=== PATIENT | female | born 1945 | race Hispanic/Latino ===

== ENCOUNTER 2021-04-13 21:42 | Emergency (ER) | payer OTHER ==
[~2021-04-13] VITALS: Ht 165.1 cm; Wt 70.3 kg
[~2021-04-13 21:42] MED LIST: DITROPAN XL5 MG PO; LOSARTAN POTASS25 MG PO; TYLENOL WITH C1 EACH PO; ZYRTEC10 MG PO
[2021-04-13] MEDS ORDERED: HYDROCODONE/APAP 5MG-325MG TAB PO ONE (22:15)
[2021-04-13] MEDS ORDERED: KETOROLAC TROMETHAMINE 30 MG/ML VIAL IM ONE (22:15)
[2021-04-13] MEDS ORDERED: ONDANSETRON HCL 4 MG ORAL DISINTEGRATING TAB PO ONE (22:15)
[2021-04-13] MEDS ORDERED: MUPIROCIN 2% OINT 22 GM TUBE TOP ONE (22:15)
[2021-04-13] MEDS ORDERED: MUPIROCIN22 GM TOP (22:26)
[2021-04-13] MEDS ORDERED: ACETAMINOPHEN-1 EAC4 PO (22:26)
[2021-04-13] MEDS ORDERED: IBUPROFEN IB200 MG PO (22:26)
[2021-04-13] MEDS ORDERED: KETOROLAC TROMETHAMINE 30 MG/ML VIAL ONE (22:36)
[2021-04-13] MEDS ORDERED: ONDANSETRON HCL 4 MG ORAL DISINTEGRATING TAB ONE (22:36)
[2021-04-13] MEDS ORDERED: HYDROCODONE/APAP 5MG-325MG TAB ONE (22:37)
[2021-04-13] MEDS ORDERED: BACITRACIN ZINC 0.9GM TP ONE (22:37)
[2021-04-13 22:47] VITALS: BP 188/90
== END 2021-04-13 22:47 | disposition home or self-care (01) ==
LOC: FSED 22:00
DX: T21.21XA Burn of second degree of chest wall, initial encounter (principal); T20.19XA Burn of first degree of multiple sites of head, face, and neck, initial encounter; T21.11XA Burn of first degree of chest wall, initial encounter; T31.0 Burns involving less than 10% of body surface
CPT/HCPCS: 99283; J1885; Q0162

== ENCOUNTER 2021-11-05 07:45 | Observation (INO) | payer MEDICARE ==
[2021-11-02 11:08] LABS: BASOPHILS % 0.5 % (0.0-1.0); EOSINOPHILS # (AUTO) 0.1 (0.0-0.4); HEMATOCRIT 37.6 % (34.2-44.1); HEMOGLOBIN 12.2 g/dL (12.0-16.0); LYMPHOCYTES # (AUTO) 1.4 (1.0-3.2); LYMPHOCYTES % 17.3 % (18.0-39.1); MEAN CORPUSCULAR HEMOGLOBIN 31.4 pg (28-32); MEAN CORPUSCULAR HGB CONC 32.4 g/dL (31-35); MEAN CORPUSCULAR VOLUME 96.7 fL (81-99); MONOCYTES # (AUTO) 0.4 (0.2-0.8); MONOCYTES % 4.2 % (4.4-11.3); NEUTROPHILS # (AUTO) 6.3 (2.1-6.9); NEUTROPHILS % 76.8 % (38.7-80.0); PLATELET COUNT 172 x10e3/uL (140-360); RED BLOOD COUNT 3.89 x10e6/uL (3.6-5.1); RED CELL DISTRIBUTION WIDTH 14.2 % (11.7-14.4)
[~2021-11-05] VITALS: Ht 162.6 cm; Wt 71.2 kg
[~2021-11-05 07:45] MED LIST changes: +ACETAMINOPHEN-1 EAC4 PO; +IBUPROFEN IB200 MG PO; +MUPIROCIN22 GM TOP
[2021-11-05] MEDS ORDERED: ROPIVACAINE 246.25 MG, EPINEPHRINE HCL 1:1000 1ML 0.5 MG, CLONIDINE HCL 0.08 MG, KETORO... INJ ONE ×5 (08:00)
[2021-11-05] MEDS ORDERED: CELECOXIB 200 MG CAP ONE (08:07)
[2021-11-05] MEDS ORDERED: DEXAMETHASONE SOD PHOS 10 MG/1 ML VIAL ONE (08:07)
[2021-11-05] MEDS ORDERED: GABAPENTIN 300 MG CAP ONE (08:08)
[2021-11-05] MEDS ORDERED: Vancomycin IV 1,000 MG ONE (08:52)
[2021-11-05] MEDS ORDERED: TRANEXAMIC ACID 1,000 MG/10 ML ML ONE (08:52)
[2021-11-05] MEDS ORDERED: SODIUM CHLORIDE 0.9% 500ML 500 ML ONE (08:52)
[2021-11-05] MEDS ORDERED: DOCUSATE SODIUM 100 MG CAP PO PRN (10:45)
[2021-11-05] MEDS ORDERED: DIPHENHYDRAMINE HCL INJ 50 MG/ML VIAL IV PRN (10:45)
[2021-11-05] MEDS ORDERED: ZOLPIDEM TARTRATE 5 MG TAB PO PRN (10:45)
[2021-11-05] MEDS ORDERED: ACETAMINOPHEN 650 MG SUPP PR PRN (10:45)
[2021-11-05] MEDS ORDERED: HYDROCODONE/APAP 5MG-325MG TAB PO PRN (10:45)
[2021-11-05] MEDS ORDERED: KETOROLAC TROMETHAMINE 30 MG/ML VIAL IV PRN (10:45)
[2021-11-05] MEDS ORDERED: HYDROCODONE/APAP 7.5MG-325MG 1 EA TAB PO PRN (10:45)
[2021-11-05] MEDS ORDERED: ONDANSETRON HCL INJ 2MG/ML 2ML 2 MG/ML VIAL IV PRN (10:45)
[2021-11-05] MEDS ORDERED: FENTANYL CITRATE/PF 100MCG/2 ML INJ ONE ×2 (11:11→13:10)
[2021-11-05] MEDS ORDERED: MEPERIDINE HCL INJ 25 MG/ML VIAL ONE (11:43)
[2021-11-05 12:30] VITALS: BP 135/63
[2021-11-05 12:32] VITALS: BP 135/63
[2021-11-05 12:36] VITALS: BP 135/63
[2021-11-05] MEDS ORDERED: ACETAMINOPHEN 1000 MG/100 ML IV ONE (12:41)
[2021-11-05] MEDS ORDERED: POVIDONE IODINE 0.05% 0.05 % ML PO ONE (12:41)
[2021-11-05] MEDS ORDERED: LIDOCAINE HCL 2% LOCAL INJ 5 ML SDV VIAL INJ ONE (12:41)
[2021-11-05] MEDS ORDERED: PROPOFOL IV EMULSION 10 MG/ML 20 ML VIAL ONE (12:41)
[2021-11-05] MEDS ORDERED: ONDANSETRON HCL INJ 2MG/ML 2ML 2 MG/ML VIAL ONE (12:41)
[2021-11-05] MEDS ORDERED: SEVOFLURANE INHAL SOLN 250 ML PEN BTL ONE (12:41)
[2021-11-05] MEDS ORDERED: SODIUM CHLORIDE 0.9% 1000ML 1,000 ML IV SCH (13:00)
[2021-11-05] MEDS ORDERED: ROPIVACAINE 0.5% 5 MG/ML 30 ML SDV ONE (13:04)
[2021-11-05] MEDS ORDERED: MIDAZOLAM HCL 2 MG/2 ML VIAL ONE (13:10)
[2021-11-05] MEDS ORDERED: SODIUM CHLORIDE 0.9% 250ML 250 ML ONE (13:46)
[2021-11-05 15:30] LABS: BASOPHILS % 0.2 % (0.0-1.0); HEMATOCRIT 36.2 % (34.2-44.1); HEMOGLOBIN 11.7 g/dL (12.0-16.0); LYMPHOCYTES # (AUTO) 0.5 (1.0-3.2); LYMPHOCYTES % 4.8 % (18.0-39.1); MEAN CORPUSCULAR HEMOGLOBIN 31.2 pg (28-32); MEAN CORPUSCULAR HGB CONC 32.3 g/dL (31-35); MEAN CORPUSCULAR VOLUME 96.5 fL (81-99); MONOCYTES # (AUTO) 0.1 (0.2-0.8); MONOCYTES % 0.5 % (4.4-11.3); NEUTROPHILS # (AUTO) 9.6 (2.1-6.9); NEUTROPHILS % 94.1 % (38.7-80.0); PLATELET COUNT 151 x10e3/uL (140-360); RED BLOOD COUNT 3.75 x10e6/uL (3.6-5.1); RED CELL DISTRIBUTION WIDTH 13.7 % (11.7-14.4)
[2021-11-05 16:15] VITALS: BP 151/81
[2021-11-05] MEDS ORDERED: ASPIRIN 325 MG TAB PO SCH (17:00)
[2021-11-05] MEDS ORDERED: CELECOXIB 200 MG CAP PO SCH (17:00)
[2021-11-05] MEDS ORDERED: Cefazolin 1 GM in SODIUM CHLORIDE 0.9% 50ML 50 ML IV SCH (17:30)
[2021-11-05] MEDS ORDERED: ONDANSETRON HCL 4 MG ORAL DISINTEGRATING TAB PO PRN (18:15)
[2021-11-06] MEDS ORDERED: ACETAMINOPHEN 1000 MG/100 ML IV PRN (10:45)
== END 2021-11-05 18:22 | disposition home or self-care (01) ==
LOC: OR 07:45 → PACU V 10:40 → MED/SURG 12:05
PROVIDERS: ADMIT Specialist; ATTEND Specialist
DX: M17.11 Unilateral primary osteoarthritis, right knee (principal); I10 Essential (primary) hypertension; Z20.822 Contact with and (suspected) exposure to COVID-19
CPT/HCPCS: 27447; 36415 ×2; 71046; 73560; 85025 ×2; 86850; 86900; 86920; 93005; 94799; 97110; 97116; 97161; 97530; C1713; G0378; J0131; J0171; J0690; J1100; J1885; J2001; J2175; J2250; J2405; J2704; J2795; J3010; J3370; J7040; J7050; U0002

== ENCOUNTER 2023-07-06 15:29 | Emergency (ER) | payer MEDICARE ==
[~2023-07-06] VITALS: Ht 162.6 cm; Wt 71.2 kg
[2023-07-06 15:50] VITALS: O2SAT 100
[2023-07-06] MEDS ORDERED: KETOROLAC TROMETHAMINE 30 MG/ML VIAL IV STA (15:59)
[2023-07-06] MEDS ORDERED: FAMOTIDINE 20 MG/2 ML VIAL IV STA (16:00)
[2023-07-06] MEDS ORDERED: SODIUM CHLORIDE 0.9% 1000ML 1,000 ML IV SCH (16:00)
[2023-07-06] MEDS ORDERED: SODIUM CHLORIDE 0.9% 1000ML 1,000 ML ONE (16:20)
[2023-07-06] MEDS ORDERED: FAMOTIDINE 20 MG/2 ML VIAL IV ONE (16:21)
[2023-07-06] MEDS ORDERED: KETOROLAC TROMETHAMINE 30 MG/ML VIAL ONE (16:21)
[2023-07-06] MEDS ORDERED: DICYCLOMINE HCL20 MG PO (17:35)
[2023-07-06] MEDS ORDERED: ONDANSETRON ODT4 MG PO (17:35)
[2023-07-06] MEDS ORDERED: CEFDINIR300 MG PO (17:35)
== END 2023-07-06 18:00 | disposition home or self-care (01) ==
LOC: FSED 15:39
DX: R10.84 Generalized abdominal pain (principal); N39.0 Urinary tract infection, site not specified; N20.0 Calculus of kidney; K57.90 Diverticulosis of intestine, part unspecified, without perforation or abscess without bleeding; R14.0 Abdominal distension (gaseous); N28.1 Cyst of kidney, acquired
CPT/HCPCS: 71046; 74176; 80053; 81003; 82553; 84484; 85025; 93005; 99284; J1885; J7030

== ENCOUNTER 2023-07-19 19:02 | Emergency (ER) | payer MEDICARE ==
[~2023-07-19] VITALS: Ht 162.6 cm; Wt 67.6 kg
[~2023-07-19 19:02] MED LIST changes: +CEFDINIR300 MG PO; +DICYCLOMINE HCL20 MG PO; +ONDANSETRON ODT4 MG PO
[2023-07-19] MEDS ORDERED: LIDOCAINE VISC 2% SOLN 15 ML UDC PO ONE (22:00)
[2023-07-19] MEDS ORDERED: MAGNESIUM/ALUMINUM/SIMETHICONE 30 ML UDC PO ONE (22:00)
[2023-07-19] MEDS ORDERED: DONNATAL/LIDOCAINE/MAALOX 30 ML SUSP PO ONE (22:00)
[2023-07-19] MEDS ORDERED: BELLADONNA ALK/PHENOBARBITAL 5 ML UDC PO ONE (22:00)
[2023-07-19] MEDS ORDERED: ONDANSETRON HCL 4 MG ORAL DISINTEGRATING TAB PO ONE (22:00)
[2023-07-19] MEDS ORDERED: MAGNESIUM/ALUMINUM/SIMETHICONE 30 ML UDC ONE (22:02)
[2023-07-19] MEDS ORDERED: BELLADONNA ALK/PHENOBARBITAL 5 ML UDC ONE (22:02)
[2023-07-19] MEDS ORDERED: ONDANSETRON HCL 4 MG ORAL DISINTEGRATING TAB ONE (22:02)
[2023-07-19] MEDS ORDERED: PANTOPRAZOLE SO40 MG PO (22:17)
[2023-07-19] MEDS ORDERED: ONDANSETRON ODT4 MG PO (22:19)
[2023-07-19 22:37] VITALS: BP 163/69; PULSE 70; RESP 18; TEMP 97.4; O2SAT 97
== END 2023-07-19 22:37 | disposition home or self-care (01) ==
LOC: FSED 19:52
DX: R11.0 Nausea (principal); K29.70 Gastritis, unspecified, without bleeding; R10.13 Epigastric pain; I10 Essential (primary) hypertension; M19.09 Primary osteoarthritis, other specified site
CPT/HCPCS: 81003; 93005; 99283; Q0162

== ENCOUNTER 2025-02-28 10:43 | Emergency (ER) | payer MEDICARE ==
[~2025-02-28] VITALS: Ht 162.6 cm; Wt 64.4 kg
[~2025-02-28 10:43] MED LIST changes: +PANTOPRAZOLE SO40 MG PO
[2025-02-28 10:59] VITALS: PULSE 78; RESP 18; TEMP 97.7; O2SAT 99
[2025-02-28] MEDS: TRAMADOL HCL 50 MG TAB PO STA (11:42)
[2025-02-28] MEDS ORDERED: ULTRAM 50MG50 MG PO ×2 (12:27→12:29)
[2025-02-28 12:54] VITALS: BP 168/77; PULSE 68; RESP 18
== END 2025-02-28 12:41 | disposition home or self-care (01) ==
LOC: FSED 11:03
DX: M25.511 Pain in right shoulder (principal); X50.1XXA Overexertion from prolonged static or awkward postures, initial encounter; Y92.89 Other specified places as the place of occurrence of the external cause; I10 Essential (primary) hypertension; M19.09 Primary osteoarthritis, other specified site
CPT/HCPCS: 93005; 99283

== ENCOUNTER → 2025-05-31 | Outpatient (RCR) | payer MEDICARE ==
[~2025-05-31] MED LIST changes: +ULTRAM 50MG50 MG PO
== END ==
LOC: PT 05-12 09:43
PROVIDERS: ATTEND Orthopaedic Surgery
DX: M19.011 Primary osteoarthritis, right shoulder (principal); M75.91 Shoulder lesion, unspecified, right shoulder